=== PATIENT | male | born 1940 | race Caucasian/White ===

== ENCOUNTER 2021-12-19 00:37 | Emergency (ER) | payer BC ==
[2021-12-19] MEDS ORDERED: Ondansetron 4 MG/2 ML SDV IVPUSH ONE (02:13)
[2021-12-19] MEDS ORDERED: Morphine 4 MG/ML VIAL IVPUSH ONE (02:13)
[2021-12-19] MEDS ORDERED: Ketorolac 30 MG/ML SDV IVPUSH ONE (02:13)
[2021-12-19 03:22] LABS: CARBON DIOXIDE,CO2 22.2 mmol/L (21.0-32.0); POTASSIUM,K 4.2 mmol/L (3.5-5.1)
[2021-12-19] MEDS ORDERED: Ibuprofen 400 MG Tab PO ONE (04:23)
== END 2021-12-19 04:29 | disposition home or self-care (01) ==
LOC: MW.ED 00:37
DX: N23 Unspecified renal colic (principal); Z88.1 Allergy status to other antibiotic agents; Z79.899 Other long term (current) drug therapy
CPT/HCPCS: 36415; 74176; 80053; 81001; 85025; 87086; 96374; 96375; 99284; A9270; J1885; J2405; 99283